=== PATIENT | female | born 1945 | race Two or more races ===

== ENCOUNTER 2019-04-25 09:00 | Outpatient (CLI) | payer OTHER ==
[2019-04-25] MEDS ORDERED: SYNTHROID175 MCG PO (11:57)
[2019-04-25] MEDS ORDERED: ALDACTONE50 MG PO (11:58)
[2019-04-25] MEDS ORDERED: GLIMEPIRIDE4 MG PO (11:58)
[2019-04-25] MEDS ORDERED: ZOCOR20 MG PO (11:58)
[2019-04-25] MEDS ORDERED: VOLTAREN-XR100 MG PO (11:59)
== END 2019-04-25 15:00 | disposition home or self-care (01) ==
LOC: LAB
DX: D64.89 Other specified anemias (principal); D68.8 Other specified coagulation defects; I10 Essential (primary) hypertension; N39.0 Urinary tract infection, site not specified; E11.00 Type 2 diabetes mellitus with hyperosmolarity without nonketotic hyperglycemic-hyperosmolar coma (NKHHC); E04.1 Nontoxic single thyroid nodule; E78.2 Mixed hyperlipidemia

== ENCOUNTER 2019-04-27 06:27 | Day surgery (SDC) | payer OTHER ==
[~2019-04-27 06:27] MED LIST: ALDACTONE50 MG PO; GLIMEPIRIDE4 MG PO; SYNTHROID175 MCG PO; VOLTAREN-XR100 MG PO; ZOCOR20 MG PO
== END 2019-04-27 14:15 | disposition home or self-care (01) ==
LOC: CIR.AMB 06:27
DX: D24.2 Benign neoplasm of left breast (principal); N60.21 Fibroadenosis of right breast